=== PATIENT | female | born 1985 | race Two or more races ===

== ENCOUNTER 2025-01-04 17:44 | Emergency (ER) | payer BC, OTHER ==
[~2025-01-04] VITALS: Ht 165.1 cm; Wt 70.4 kg
--- NOTE | 2025-01-04 18:02 | ED.PDOC ---
Back pain HPI HPI Comments 39-year-old female presents with a chief complaint of left ankle pain s/p snow tubing. Patient states that she was snow tubing in [place] when she accidentally hyper extended her left foot. Patient states that after the incident she had no deformity to the ankle, but states that it has been painful to walk on her left foot or bear any weight on the foot. Patient is endorsing 10/10 pain at this time. No other symptoms or modifying factors present at this time. PMHx: None PSHx: Appendectomy, Thyroidectomy HPI: Poor Historian. REVIEW OF SYSTEMS: CONSTITUTIONAL: Denies acute: fever, diaphoresis, chills, generalized weakness. HEAD: Denies acute: headache, photophobia Eyes: Denies acute: Double vision, vision loss, eye pain, eye discharge. EARS: Denies acute: tinnitus, hearing loss, ear discharge, ear pain, THROAT: Denies acute: sore throat, swelling, difficulty swallowing , pain with swallowing, change in voice. NECK: Denies acute: neck pain, neck swelling, stiff neck. HEART: Denies acute : chest pain, palpitations, LUNGS: Denies acute: SOB, wheezing, cough, hemoptysis ABDOMEN: Denies acute: abdominal pain, Nausea, Vomiting, diarrhea, melena , hematemesis, hematochezia SKIN: Denies acute: rash, redness, lesions, itchiness. EXTREMITIES: Denies acute: calf pain, numbness, tingling, weakness, Denies acute: Low back pain. Neuro: Denies acute: focal neurological deficit, motor or sensory focal neurological deficit, tremors, seizure like activity, confusion, dizziness, change in mental status, loss of bowel or bladder function, cauda equina like symptoms. : Denies acute: dysuria, hematuria, flank pain, increase in urinary frequency. PSYCH: Denies acute: hallucination, suicidal ideation, homicidal ideation. FEMALE: Denies acute: abnormal vaginal bleeding, foul odor, unusual discharge. PHYSICAL EXAM: General: no acute distress, awake and alert. Head: normocephalic, atraumatic. Neck: supple, trachea is midline, no swelling. Throat: Normal phonation. Eyes:, no erythema, no purulent discharge, no proptosis, no icterus. Heart: regular rate, regular rhythm, no significant murmur appreciated. Lungs: no apparent respiratory distress, Able to speak in full sentences. No wheezing, no rhonchi, no crackles. No stridors Clear to auscultation bilaterally. Abdomen: non tender to palpation, non distended, soft, no guarding, no rebound, + bowel sounds. Neuro: Awake, Alert, oriented to name, self, situation, follows commands GCS=15. Speech is normal. Skin: no petechia, no purpura, no cyanosis, non-pale, not jaundice. Lower extremities: --no - Pitting edema no deformity, no calf TTP. Evaluation of the area of pain. Left ankle minimal swelling at the lateral malleoli. Decreased range of motion secondary to pain. No erythema, no apparent deformity. The patient is neurovascularly intact in the affected extremity. Pedal pulses palpable. Sensory and motor are present. Makes eye contact. moves all four extremities. Face: no apparent facial droop. Pedal pulses are palpable. 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 Was a procedure done?: No Back Pain Differential Dx Differential Diagnosis: Other (Fracture, dislocation, sprain, strain, sepsis, bursitis, compartment syndrome, neurovascular injury.) X-Ray, Labs, Meds, VS Vital Signs Date Time Temp Pulse Resp B/P (MAP) Pulse Ox O2 Delivery O2 Flow Rate FiO2 01/04/25 19:54 98.3 88 19 127/67 (87) 100 98.3 01/04/25 19:26 89 17 97 Room Air* 0 21 01/04/25 18:10 98.9 104 19 117/84 (95) 98 98.9 PATIENT: OLEG BLANCO ACCT: [id number] UNIT: [id number] : 1985 LOC: ER ROOM / BED: / AGE / SEX: 39 / F ADM STATUS: REG ER SERVICE [id number] ORDERING PHYSICIAN: ELIGIO BRAND DO PROCEDURE(s): LANKL - L ANKLE 3 VIEW REASON: ankle pain/injury ORDER NUMBER(s): [id number], ACCESSION NUMBER(s): [id number] CLINICAL INDICATION: ankle pain/injury TECHNIQUE: 3 radiographic views of the left ankle were obtained. Comparison: None FINDINGS/IMPRESSION: There is no evidence of acute fracture or dislocation. Soft tissue swelling over the lateral malleolus The visualized joint space is well maintained. The alignment is anatomical. There is no radiopaque foreign body. ATED BY: SHARMILA GARRETT Jr., DO DICTATED DATE/TIME: 01/04/251832 SIGNED BY: SHARMILA GARRETT Jr., SIGNED DATE/TIME: 01/04/251832 Time of 1ST Reevaluation: 18:25 Reevaluation 1ST: Unchanged Time of 2ND Reevaluation: 00:00 Reevaluation 2ND: Improved Patient Education/Counseling: Diagnosis, Treatment Family Education/Counseling: No Family Present Comments Patient presented with the above HPI.---left ankle sprain---workup was initiated. patient was found with the above mentioned diagnosis. the following medications were ordered: please refer to order lists of meds and tests obtained by myself Dr. Brand. Patient ED course and VS have been stabilized. Patient has been reassessed in the ED and remained in a stable condition. Pertinent incidental findings were discussed with the patient and/or family. Patient/family voices understanding and is agreeable with plan. Patient has been observed in the ED adequate length of time to insure improvement/stability. Escalation of care considered: Consideration of escalation to observation or admission Patient was offered [place] wrap versus a splint. She preferred a splint. Short posterior leg and sugar-tong splints were placed. Patient said she will follow up with the orthopedic doctor in a couple of days. Patient was DISCHARGED home in a stable condition. All the reports of any imaging studies that were ordered by myself were reviewed by myself. Departure 1 Departure Time of Disposition: 18:37 Impression: Primary Impression: Left ankle sprain Disposition: HOME / SELF CARE / HOMELESS Condition: Stable Additional Instructions: Additional discharge instructions: You MUST follow-up with your primary care/family doctor in 1 to 2 days. If you are unable to see your primary care/family doctor, please return to our emergency room for re-assessment and re-evaluation in 1 to 2 days. Return to the emergency room here in our facility or to the nearest ER [facility] if your symptoms change or worsen. CONSULTATIONS: you MUST Follow-up for consultation as soon as possible with: -orthopedic surgery in 1-2 days. Please call for appointment. You MUST call the consultants office yourself to make an appointment. You may need to arrange that through your insurance and/or your primary/family doctor. If you are unable to see the service delivery consultant in 1 to 2 days, you must return to our emergency room (or any other ER of your choice) for re-assessment and re- evaluation. Adequate fluid hydration. Leg elevation. Use [id number] Tylenol or ibuprofen with food as needed for pain control. Please be mindful of compartment syndrome. Below is a copy of your radiological report for follow up: [place] [id number] Ph: [phone] DIAGNOSTIC IMAGING Diagnostic Imaging Report : [id number] Signed PATIENT: OLEG BLANCO ACCT: [id number] UNIT: [id number] : 1985 LOC: ER ROOM / BED: / AGE / SEX: 39 / F ADM STATUS: REG ER SERVICE [id number] ORDERING PHYSICIAN: ELIGIO BRAND DO PROCEDURE(s): LANKL - L ANKLE 3 VIEW REASON: ankle pain/injury ORDER NUMBER(s): [id number], ACCESSION NUMBER(s): [id number] CLINICAL INDICATION: ankle pain/injury TECHNIQUE: 3 radiographic views of the left ankle were obtained. Comparison: None FINDINGS/IMPRESSION: There is no evidence of acute fracture or dislocation. Soft tissue swelling over the lateral malleolus The visualized joint space is well maintained. The alignment is anatomical. There is no radiopaque foreign body. ATED BY: SHARMILA GARRETT Jr., DO DICTATED DATE/TIME: 01/04/251832 SIGNED BY: SHARMILA GARRETT Jr., SIGNED DATE/TIME: 01/04/251832 CC: Discharged With: Self Critical Care Note Critical Care Time?: No I personally scribed for ELIGIO BRAND DO ([email or web address]) on 01/04/25 at 18:02. Electronically submitted by Alex Hu ([email or web address]). I personally scribed for ELIGIO BRAND DO ([email or web address]) on 01/04/25 at 18:38. Electronically submitted by Alex Hu ([email or web address]). I personally scribed for ELIGIO BRAND DO ([email or web address]) on 01/04/25 at 18:44. Electronically submitted by Alex Hu ([email or web address]). ELIGIO BRAND DO Jan 04, 2025 18:02
--- NOTE | 2025-01-04 18:35 | DVH ---
CLINICAL INDICATION: ankle pain/injury TECHNIQUE: 3 radiographic views of the left ankle were obtained. Comparison: None FINDINGS/IMPRESSION: There is no evidence of acute fracture or dislocation. Soft tissue swelling over the lateral malleolus The visualized joint space is well maintained. The alignment is anatomical. There is no radiopaque foreign body.
[2025-01-04 19:26] VITALS: PULSE 89; RESP 17; O2SAT 97
[2025-01-04 19:54] VITALS: BP 127/67; PULSE 88; RESP 19; TEMP 98.3; O2SAT 100
== END 2025-01-04 19:53 | disposition home or self-care (01) ==
LOC: ER 17:44 → EEVIPCON 17:44 → ER 19:53
DX: S93.492A Sprain of other ligament of left ankle, initial encounter (principal); X58.XXXA Exposure to other specified factors, initial encounter; Y93.23 Activity, snow (alpine) (downhill) skiing, snowboarding, sledding, tobogganing and snow tubing; Y92.89 Other specified places as the place of occurrence of the external cause; Y99.8 Other external cause status
CPT/HCPCS: 29515; 73610